=== PATIENT | female | born 1980 | race Caucasian/White ===

== ENCOUNTER → 2020-10-15 10:44 | Outpatient (CLI) | payer OTHER, SELFPAY ==
--- NOTE | ~2020-10-15 | US_ITS ---
EXAMINATION: US retroperitoneal duplex ltd, US abdomen limited DATE: 10/15/2020 11:25 INDICATION: Abdominal pain. Dark urine. TECHNIQUE: Multiple grayscale, color Doppler, and pulsed Doppler images of the right upper quadrant a s well as the kidneys and renal arteries were obtained. COMPARISON: None. FINDINGS: The pancreatic head and body are normal in appearance. The pancreatic tail is not visualized. Liver has normal echogenicity and contour, with a smooth surface. No liver lesion identified. No intrahepat ic biliary duct dilation suspected. Portal venous flow was seen in the hepatopetal, normal direction and has normal Doppler waveform. Multiple echogenic and shadowing gallstones within the otherwise nor mal-appearing gallbladder. No bladder wall thickening or pericholecystic fluid. Sonographic Howard si gn was reported as negative by the cartridge loader. The common bile duct measures 2-3 mm in maximal diame ter which is normal. The aorta peak systolic velocity is 121 cm/s. The right renal artery peak systolic velocity is 179 cm /s in the proximal segment, 140 cm/s in the mid segment, and 185 cm/s in the distal segment. The left renal artery peak systolic velocity is 159 cm/s in the proximal segment, 127 cm/s in the mid segment , and 166 cm/s in the distal segment. IMPRESSION: 1. Right renal artery peak systolic velocities at the borderline for >50-60% stenosis. Normal left r enal artery resistive indices. 2. Cholelithiasis. Reviewed, dictated and finalized at location B. [employer] PROCESSOR IMPRESSION: 1. Right renal artery peak systolic velocities at the borderline for >50-60% s tenosis. Normal left renal artery resistive indices. 2. Cholelithiasis.
== END ==
PROVIDERS: PCP Internal Medicine; Visit Provider Nurse Practitioner
DX: R10.11 Right upper quadrant pain (principal); K80.20 Calculus of gallbladder without cholecystitis without obstruction
CPT/HCPCS: 76705; 93976

== ENCOUNTER → 2023-04-22 12:39 | Outpatient (CLI) | payer OTHER, SELFPAY ==
--- NOTE | ~2023-04-22 | MM_ITS ---
EXAMINATION: MM screening marilyn BI w max HISTORY: Screening mammogram TECHNIQUE: Craniocaudal and mediolateral oblique 3-D tomosynthesis images were obtained and synthetic 2-D images were generated. Bilateral rotated lateral CC views. CAD analysis was submitted and interp reted. COMPARISON: No prior mammogram is available for comparison at this institution. BREAST PARENCHYMAL COMPOSITION: The breasts are heterogeneously dense, which may obscure small masses . FINDINGS: There is a 5 mm oval circumscribed opacity in the very posterior central right breast on ML O view. This may be a benign lymph node, but without any prior mammogram for comparison, diagnostic r ight mammogram and right breast ultrasound examination are recommended. Otherwise no suspicious mass, architectural distortion, malignant calcification, skin thickening or r etraction is noted. There is no evidence of suspicious mass, calcification, or architectural distorti on to suggest malignancy in either breast. There has been no suspicious interval change. IMPRESSION: 1. Asymmetric 5 mm circumscribed opacity in the posterior central right breast on MLO view; no prior mammogram is available for comparison 2. Diagnostic right mammogram and right targeted breast ultrasound are recommended BI-RADS Category 0: Incomplete: Needs additional imaging evaluation. Reviewed, dictated and finalized at location A. IMPRESSION: 1. Asymmetric 5 mm circumscribed opacity in the posterior central right breast on MLO view; no prior mammogram is available for comparison 2. Diagnostic right mammogram and right targeted breast ultrasound are recommen ded BI-RADS Category 0: Incomplete: Needs additional imaging evaluation.
== END ==
PROVIDERS: PCP Obstetrics & Gynecology; Visit Provider Internal Medicine
DX: Z12.31 Encounter for screening mammogram for malignant neoplasm of breast (principal); R92.8 Other abnormal and inconclusive findings on diagnostic imaging of breast
CPT/HCPCS: 77063; 77067

== ENCOUNTER → 2023-06-02 07:36 | Outpatient (CLI) | payer OTHER, SELFPAY ==
--- NOTE | ~2023-06-02 | MMUS_ITS ---
EXAMINATION: MM diagnostic marilyn RT w max, US breast RT limited HISTORY: Asymmetric 5 mm circumscribed opacity in posterior central right breast on screening MLO vie w of 04/22/2023 TECHNIQUE: Additional 3-D tomosynthesis images of were performed and synthetic 2-D images were genera fransisco. CAD analysis was submitted and interpreted. High resolution breast ultrasound was performed. COMPARISON: None FINDINGS: MAMMOGRAPHIC FINDINGS: There is a circumscribed approximately 0.8 x 4.5 mm circumscribed opacity in the posterior outer mid right breast, with evidence of a radiolucent hilus. This is likely a benign intramammary lymph node. No suspicious mass, architectural distortion, malignant microcalcifications, skin thickening or retra ction of the right breast is detected. ULTRASOUND: At 10:00 13 cm from the nipple in the right axillary area there are approximately 6 x 11 mm and an ap proximately 5.8 x 6.4 mm benign-appearing lymph nodes. No suspicious mass or shadowing is detected. IMPRESSION: 1. Benign findings 2. Routine annual mammographic screening is recommended BI-RADS Category 2: Benign finding(s). Reviewed, dictated and finalized at location A. IMPRESSION: 1. Benign findings 2. Routine annual mammographic screening is recommended BI-RADS Category 2: Benign finding(s).
== END ==
PROVIDERS: PCP Internal Medicine; Visit Provider Obstetrics & Gynecology
DX: N64.89 Other specified disorders of breast (principal)
CPT/HCPCS: 76642; 77061; 77065; G0279

== ENCOUNTER 2024-06-10 09:47 | Outpatient (CLI) | payer OTHER, SELFPAY ==
--- NOTE | ~2024-06-10 | US_ITS ---
EXAMINATION: US pelvic complete w TV DATE: 06/10/2024 10:15 INDICATION: Recurrent urinary tract infection. TECHNIQUE: Multiple transabdominal and transvaginal sonographic images of the pelvis were obtained. COMPARISON: None. FINDINGS: TRANSABDOMINAL ULTRASOUND: The uterus measures 7.2 x 3.9 x 4.6 cm. There is no free fluid in the pelvis. TRANSVAGINAL ULTRASOUND: The endometrial complex measures 3 mm in thickness. There is a 1.6 cm subserosal fibroid. The right o vary measures 1.9 x 1.0 x 1.5 cm. The left ovary is not visualized. IMPRESSION: 1. Uterine fibroid. Reviewed, dictated and finalized at location A. IMPRESSION: 1. Uterine fibroid.
== END 2024-06-10 09:48 ==
LOC: MICIMG 09:47
PROVIDERS: PCP Internal Medicine; Visit Provider Internal Medicine
DX: N39.0 Urinary tract infection, site not specified (principal); D25.9 Leiomyoma of uterus, unspecified
CPT/HCPCS: 76830; 76856

== ENCOUNTER 2024-06-26 15:19 | Outpatient (CLI) | payer OTHER, SELFPAY ==
--- NOTE | ~2024-06-26 | XR_ITS ---
EXAMINATION: XR abdomen/kub 1V DATE: 06/26/2024 16:13 INDICATION: Microscopic hematuria. TECHNIQUE: A supine view of the abdomen on 2 radiographs was obtained. COMPARISON: CT abdomen and pelvis 06/26/2024 FINDINGS: There are no dilated loops of bowel. There are phleboliths in the pelvis. IMPRESSION: 1. No urolithiasis. Reviewed, dictated and finalized at location A. IMPRESSION: 1. No urolithiasis.
--- NOTE | ~2024-06-26 | CT_ITS ---
EXAMINATION: CT abdomen pelvis wo/w con DATE: 06/26/2024 16:13 INDICATION: Microscopic hematuria. TECHNIQUE: Computed tomography (CT) of the abdomen and pelvis was performed without and with intraven ous contrast using a total of 130 mL Omnipaque-350 intravenous contrast with a double-bolus technique for simultaneous opacification of the renal parenchyma and renal collecting system. Automated exposu re control and iterative reconstruction technique were employed. The dose-length product was 1715.91 mGy-cm. COMPARISON: None FINDINGS: The visualized portions of the lung bases demonstrates minimal atelectasis. No pleural effusion. The heart size is normal. No pericardial effusion. There is a small sliding hiatal hernia. The liver and spleen are normal. There is a gallstone in the gallbladder, which is normal in size. The pancreas, ad renal glands, and right kidney are normal. There is focal cortical thinning of left kidney with a 5 m m parenchymal calcification. The ureters are not well opacified distally, but are normal. The bladder is normal. There are no dilated loops of bowel. The appendix is normal. There are no pathologically enlarged lymph nodes. There is no free intraperitoneal fluid. There are benign bone islands in the sa robbie and left ilium. There is a chronic compression fracture of L1. IMPRESSION: 1. No etiology for hematuria. Reviewed, dictated and finalized at location A.
[2024-06-26 15:46] LABS: Estimated Glomerular Filt Rate > 60
== END 2024-06-26 15:20 ==
LOC: MICIMG 15:20
PROVIDERS: PCP Internal Medicine; Visit Provider Nurse Practitioner Family
DX: R31.29 Other microscopic hematuria (principal)
CPT/HCPCS: 74018; 74178; Q9967